=== PATIENT | male | born 1990 | race Caucasian/White ===

== ENCOUNTER → 2017-12-18 15:46 | Outpatient (CLI) | payer OTHER, SELFPAY ==
[2017-12-20 18:00] LABS: Hepatitis B Surf Ab Quant >1000.0 mIU/mL (Immunity>9.9)
== END ==
PROVIDERS: PCP Family Medicine; Visit Provider Family Medicine
DX: Z09 Encounter for follow-up examination after completed treatment for conditions other than malignant neoplasm (principal)
CPT/HCPCS: 36415; 86706